=== PATIENT | male | born 1980 | race Asian ===

== ENCOUNTER 2023-08-30 20:34 | Emergency (ER) | payer SELFPAY ==
[~2023-08-30] VITALS: Ht 175.3 cm; Wt 83.9 kg
[2023-08-30 21:20] VITALS: BP 122/76
[2023-08-30] MEDS ORDERED: TDAP [DIPH/PERTUSSIS/TET] 0.5 ML VIAL IM ONE (22:33)
[2023-08-30] MEDS: TDAP [DIPH/PERTUSSIS/TET] 0.5 ML VIAL IM ONE (22:47)
[2023-08-30 23:30] VITALS: O2SAT 98
== END 2023-08-30 23:31 | disposition home or self-care (01) ==
LOC: ER 20:37
DX: S41.112A Laceration without foreign body of left upper arm, initial encounter (principal); Z91.013 Allergy to seafood; W25.XXXA Contact with sharp glass, initial encounter; Y93.89 Activity, other specified; Y92.89 Other specified places as the place of occurrence of the external cause; Y99.8 Other external cause status
CPT/HCPCS: 12002; 90471; 90715; 99283; A6403

== ENCOUNTER 2023-09-07 09:54 | Emergency (ER) | payer SELFPAY ==
[~2023-09-07] VITALS: Ht 182.9 cm; Wt 102.1 kg
[2023-09-07 10:11] VITALS: BP 128/68; TEMP 98; O2SAT 97
== END 2023-09-07 10:28 | disposition home or self-care (01) ==
LOC: ER 10:02
DX: S61.412D Laceration without foreign body of left hand, subsequent encounter (principal); X58.XXXD Exposure to other specified factors, subsequent encounter

== ENCOUNTER 2023-09-11 10:01 | Emergency (ER) | payer SELFPAY ==
[~2023-09-11] VITALS: Ht 182.9 cm; Wt 99.8 kg
[2023-09-11 10:37] VITALS: BP 135/67; TEMP 98.5; O2SAT 99
== END 2023-09-11 10:38 | disposition home or self-care (01) ==
LOC: ER 10:03
DX: S51.012D Laceration without foreign body of left elbow, subsequent encounter (principal); Z48.02 Encounter for removal of sutures; Z91.013 Allergy to seafood; X58.XXXD Exposure to other specified factors, subsequent encounter